=== PATIENT | male | born 1980 | race Caucasian/White ===

== ENCOUNTER 2017-02-14 10:21 | Emergency (ER) | payer MEDICAID ==
[2017-02-14 10:40] VITALS: BMI 23.3
[2017-02-14 10:45] VITALS: BP 130/84; PULSE 85; RESP 16; TEMP 97.9; O2SAT 97
--- NOTE | 2017-02-14 11:01 | ED PDOC ---
Upper Extremity Pain/Injury Time Seen by Provider: 02/14/17 10:43 Chief Complaint (Nursing): Upper Extremity Problem/Injury Chief Complaint (Provider): Continued neck pain History Per: Patient Additional Complaint(s): 36 year old male presents to the emergency room for the evaluation of continued left neck and shoulder pain since this morning after waking up. Patient states the pain is localized over left lateral neck radiating down to left shoulder and left upper back. Patient notes that pain is worse with head rotation and left shoulder movement. Patient otherwise denies any known trauma/injury, headache, dizziness, visual changes, chest pain, shortness of breath, palpitations, diaphoresis, cough, denies weakness, numbness to B/L UEs. Ambulate to ED for evaluation, not in any apparent distress. Seen in [facility] ED 2 days ago and was given Motrin and Tramadol which he has been taking without relief. Past Medical History Reviewed: Nursing Documentation, Vital Signs Vital Signs: Last Vital Signs Temp 97.9 F 02/14/17 10:42 Pulse 85 02/14/17 10:42 Resp 16 02/14/17 10:42 BP 130/84 02/14/17 10:42 Pulse Ox 97 02/14/17 10:42 - Medical History PMH: No Chronic Diseases - Surgical History Surgical History: No Surg Hx - Family History Family History: States: Unknown Family Hx - Living Arrangements Living Arrangements: With Family - Immunization History Hx Influenza Vaccination: No Hx Pneumococcal Vaccination: No - Home Medications Home Medications: Ambulatory Orders Medication Instructions Recorded Ibuprofen [Motrin Tab] 600 mg PO Q6 #20 tab 02/12/17 Methocarbamol [Robaxin] 500 mg PO TID #14 tab 02/12/17 traMADol [Ultram] 50 mg PO TID #7 tab 02/12/17 Cyclobenzaprine [Cyclobenzaprine 10 mg PO TID #20 tab 02/14/17 HCl] Cyclobenzaprine [Cyclobenzaprine 10 mg PO TID #20 tab 02/14/17 HCl] - Allergies Allergies/Adverse Reactions: Allergies Allergy/AdvReac Type Severity Reaction Status Date / Time No Known Allergies Allergy Verified 02/12/17 12:22 Review of Systems ROS Statement: Except As Marked, All Systems Reviewed And Found Negative Musculoskeletal: Positive for: Other (shoulder pain) Physical Exam - Reviewed Nursing Documentation Reviewed: Yes Vital Signs Reviewed: Yes - Physical Exam Appears: Positive for: Well, Non-toxic, No Acute Distress Head Exam: Positive for: ATRAUMATIC, NORMAL INSPECTION, NORMOCEPHALIC Skin: Positive for: Normal Color, Warm, DRY Eye Exam: Positive for: EOMI, Normal appearance, PERRL ENT: Positive for: Normal ENT Inspection Neck: Positive for: Normal, Painless ROM Cardiovascular/Chest: Positive for: Regular Rate, Rhythm Respiratory: Positive for: CNT, Normal Breath Sounds Gastrointestinal/Abdominal: Positive for: Normal Exam, Bowel Sounds, Soft Back: Positive for: Normal Inspection Extremity: Positive for: Normal ROM (however with pain). Negative for: Tenderness, Deformity, Swelling Neurologic/Psych: Positive for: Alert, Oriented - ECG O2 Sat by Pulse Oximetry: 97 Medical Decision Making Medical Decision Making: XR: NAD, as read by ANGELICA Pt medicated with Toradol and Flexeril Doing well on re-eval, no complaints Advised to follow up with PMD, return o ED with any concerns Disposition - Clinical Impression Clinical Impression: Cervical strain, Shoulder pain, Muscle spasm - Patient ED Disposition Is Patient to be Admitted: No - Disposition Disposition: Routine/Home Disposition Time: 14:04 Condition: STABLE Prescriptions: Cyclobenzaprine [Cyclobenzaprine HCl] 10 mg PO TID #20 tab Cyclobenzaprine [Cyclobenzaprine HCl] 10 mg PO TID #20 tab Instructions: Cervical Strain (DC), Shoulder Pain (ED) - POA Present On Arrival: None
--- NOTE | 2017-02-14 14:19 | RAD ---
PROCEDURE: Radiographs of the Left Shoulder HISTORY: pain, atruamtic COMPARISON: No prior. FINDINGS: BONES: Normal. No fracture. JOINTS: Normal. Glenohumeral and acromioclavicular joints preserved. No osteoarthritis. SOFT TISSUES: Normal. OTHER FINDINGS: None. IMPRESSION: No acute findings related to/accounting for the clinical presentation.
== END 2017-02-14 14:16 | disposition home or self-care (01) ==
LOC: H.ER 10:21
DX: S16.1XXA Strain of muscle, fascia and tendon at neck level, initial encounter (principal); M25.512 Pain in left shoulder; M62.838 Other muscle spasm